=== PATIENT | male | born 1985 | race Caucasian/White ===

== ENCOUNTER 2017-09-21 19:25 | Inpatient (IN) ==
[2017-09-21] MEDS ORDERED: Clindamycin 600 MG/50 ML 600 MG/50 ML IV.SOLN IVPB ONE ×2 (20:04→22:34)
[2017-09-21] MEDS ORDERED: Vancomycin 1,000 MG in D5% in Water 250 ML IVPB ONE (20:04)
[2017-09-21] MEDS ORDERED: 0.9 % Sodium Chloride 1,000 ML IVC SCH (20:15)
--- NOTE | 2017-09-21 20:18 | Emergency Department Note ---
Disposition Clinical Impression: Cellulitis Disposition: Admitted As Inpatient Condition: Fair Time of Disposition: 22:27 (jordana adamson) Skin/Abscess/FB HPI Chief complaint: ED Skin/Abscess/Foreign Body Stated complaint: abscess has extended Time Seen by Provider: 09/21/17 20:02 Source: patient Mode of arrival: ambulatory Limitations: no limitations Nursing Notes Reviewed: Yes Vital Signs Reviewed: Yes HPI Narrative: Seen the other day and [facility] was diagnosed with cellulitis and abscess to the abdomen was put on Chlortrimazole cream Bactrim and Keflex patient states though having no improvement patient states is actually worse it is outside the lines were drawn on his abdomen in the area on his axilla is even getting worse he denies fever chills lightheadedness dizziness denies diarrhea melena hematochezia or hematemesis he denies numbness tingling weakness but states he just does not feel well he denies cough cold or flulike symptoms Patient advises that he is a borderline diabetic and he does not routinely check his sugars Pt Subjective Complaint: abscess/boil Onset (ago): day(s) Tetanus Up to Date: yes Location: chest, Abdomen Severity: moderate Severity scale (1-10): 5 Quality: aching Consistency: constant, Worsening Improves with: none Worsens with: none Context: recent antibiotic Associated symptoms: Denies: fever, chills, rigors, itching, nausea, vomiting, malaise, arthralgias, myalgias, cough, shortness of breath Treatments prior to arrival: antibiotic, other (Other health care provider) Home Medications Medication Instructions Recorded Confirmed Carvedilol [Coreg] 25 mg PO DAILY 09/21/16 09/21/16 Lisinopril-HCTZ 20-12.5 20 mg PO DAILY 09/21/16 09/21/17 Paroxetine HCl [Paxil] 40 mg PO DAILY 09/21/16 09/21/17 Previous Rx's Medication Instructions Recorded Cephalexin [Keflex] 500 mg PO BID 10 Days capsule 09/19/17 Clotrimazole 1% CRM [Lotrimin 1%] 1 appl TP BID 14 Days tube 09/19/17 Sulfamethoxazole/Trimeth DS 1 each PO BID 10 Days tablet 09/19/17 [Bactrim DS] Allergies Allergy/AdvReac Type Severity Reaction Status Date / Time No Known Allergies Allergy Verified 09/21/17 21:19 All systems ED: reviewed and negative except as stated. Review of Systems: As Per HPI Constitutional: Denies: fever, chills, weakness Eyes: Denies: eye pain, eye discharge ENT ED: Denies: ear pain Cardiovascular: Denies: chest pain Respiratory: Denies: cough, dyspnea Gastrointestinal: Reports: abdominal pain. Denies: nausea, vomiting Genitourinary: Denies: urgency, dysuria Musculoskeletal: Denies: back pain, neck pain Integumentary: Reports: rash, lesions Neurological: Denies: headache, weakness Psychiatric: Denies: anxiety, depression Endocrine: Denies: fatigue Hematological/Lymphatic: Denies: easy bleeding Allergic/Immunologic: Denies: facial swelling Past Medical History - Past Medical History Attestation: Yes The following information was validated with the patient. Source: patient, old records reviewed, nursing notes reviewed Medical history: Reports: hypertension, other Psychiatric history: Reports: anxiety, depression, panic disorder - Social History Smoking Status: Never smoker Smokeless Tobacco Status: Yes Alcohol use: Reports: none Drug use: Reports: none Physical Exam - General Limitations: no limitations General appearance: alert, in no apparent distress, obese - Head Head exam: atraumatic, normocephalic, normal inspection - Eye Eye exam: Present: normal appearance, PERRL, EOMI - ENT ENT exam: normal exam, normal oropharynx, mucous membranes moist, normal external ear exam - Neck Neck exam: Present: normal inspection, full ROM, trachea midline - Chest Chest inspection: Present: normal inspection, symmetric chest wall rise, other ( cellulitis in the right axillary area 5x8cm) - Respiratory Respiratory exam: Present: normal lung sounds bilaterally - Cardiovascular Cardiovascular exam: Present: regular rate, normal rhythm, normal heart sounds - Abdominal Exam Abdominal exam: Present: soft, Non-Tender, normal bowel sounds, other ( extensive cellulitis of the lower distal third of the abdominal region extending out side the markings on the abdomen region) - Extremities Exam Extremities exam: Present: normal inspection, full ROM, normal capillary refill. Absent: tenderness, pedal edema, joint swelling, calf tenderness - Expanded Lower Extremity Exam Neurovascular/Tendon exam: Present: normal capillary refill, normal fine/light touch Gait: observed and normal - Back Exam Back exam: Present: normal inspection, full ROM. Absent: muscle spasm - Neurological Exam Neurological exam: Present: alert, oriented X3, CN II-XII intact - Psychiatric Psychiatric exam: Present: normal affect, normal mood - Skin Skin exam: Present: warm, dry, intact, normal color Course Course Narrative: Patient seen and examined labs drawn antibiotic started septic workup was done patient was then admitted with IV anabiotic after CT scan showed no acute abscesses Dr. Munguia in agreement transferred to [facility] Vital Signs Temperature 96 F 09/21/17 19:30 Pulse Rate 85 09/21/17 19:30 Respiratory Rate 18 09/21/17 19:30 Blood Pressure 143/90 09/21/17 19:30 O2 Sat by Pulse Oximetry 96 09/21/17 19:30 Temperature 96 F 09/21/17 19:30 Pulse Rate 102 09/21/17 21:50 Respiratory Rate 16 09/21/17 21:50 Blood Pressure 139/98 09/21/17 21:50 O2 Sat by Pulse Oximetry 95 09/21/17 21:50 Oxygen Delivery Oxygen Delivery Room Air Skin/Abscess/Foreign Body - MDM Narrative Medical decision making narrative: Failed outpatient therapy - Differential Diagnosis Likely: abscess of skin or subcutaneous tissue, cellulitis - Medical Records Medical records reviewed: Yes I reviewed the patient's medical records. - Lab Data Result diagrams: 09/21/17 20:12 09/21/17 20:12 Lab Results 09/21/17 09/21/17 09/21/17 Range/Units 20:12 20:12 20:12 WBC 12.4 H (4.3-11.1) K/mcL RBC 4.94 (4.19-5.50) M/mcL Hgb 14.0 (12.9-16.9) g/dL Hct 40.4 (37.5-50.1) % MCV 81.8 L (83.0-100.0) fL MCH 28.3 (28.0-33.3) pg MCHC 34.7 (31.6-35.5) g/dL RDW 13.1 (11.5-14.5) % Plt Count 311 (140-400) K/mcL MPV 10.1 (9.4-12.4) fL Immature Gran % 0.5 (0-4) % Seg Neutrophils % 69.6 % Lymphocytes % 21.9 % Monocytes % 4.9 % Eosinophils % 2.9 % Basophils % 0.2 % Neutrophils # 8.6 (1.6-8.9) K/mcL Lymphocytes # 2.7 (0.6-4.6) K/mcL Monocytes # 0.6 (0.0-1.3) K/mcL Eosinophils # 0.4 (0.0-0.6) K/mcL Basophils # 0.0 (0.0-0.2) K/mcL APTT 27.0 (26.0-36.0) Seconds Sodium 132 L (136-145) mEq/L Potassium 4.1 (3.5-4.5) mEq/L Chloride 100 (98-109) mEq/L Carbon Dioxide 23 (19-29) mEq/L BUN 8 (8-26) mg/dL Creatinine 0.93 (0.72-1.25) mg/dL Est GFR ( Amer) > 60 (> 60) Est GFR (Non-Af Amer) > 60 (> 60) BUN/Creatinine Ratio 9 (6-26) Glucose 391 H (70-99) mg/dL Calculated Osmolality 289 (280-300) Calcium 9.9 (8.6-10.8) mg/dL Critical Care Time Critical Care Time: No
[2017-09-21 20:27] LABS: Basophils % 0.2 %; Eosinophils # 0.4 K/mcL (0.0-0.6); Eosinophils % 2.9 %; Hematocrit 40.4 % (37.5-50.1); Immature Granulocytes % 0.5 % (0-4); Lymphocytes # 2.7 K/mcL (0.6-4.6); Lymphocytes % 21.9 %; Mean Corpuscular HGB Conc 34.7 g/dL (31.6-35.5); Mean Corpuscular Hemoglobin 28.3 pg (28.0-33.3); Mean Corpuscular Volume 81.8 fL (83.0-100.0); Mean Platelet Volume 10.1 fL (9.4-12.4); Monocytes # 0.6 K/mcL (0.0-1.3); Monocytes % 4.9 %; Neutrophils # 8.6 K/mcL (1.6-8.9); Platelet Count 311 K/mcL (140-400); Red Blood Count 4.94 M/mcL (4.19-5.50); Red Cell Distribution Width 13.1 % (11.5-14.5); Segmented Neutrophils % 69.6 %
[2017-09-21 20:42] LABS: BUN/Creatinine Ratio 9 (6-26); Blood Urea Nitrogen 8 mg/dL (8-26); Calcium 9.9 mg/dL (8.6-10.8); Carbon Dioxide 23 mEq/L (19-29); Chloride 100 mEq/L (98-109); Glucose 391 mg/dL (70-99); Osmolality,Calculated 289 (280-300); Potassium 4.1 mEq/L (3.5-4.5); Sodium 132 mEq/L (136-145); eGFR For African Americans > 60 (> 60); eGFR For Non-African Americans > 60 (> 60)
[2017-09-21] MEDS ORDERED: *HR* HYDROcodone/Acet 5/325 mg TABLET PO PRN (22:34)
[2017-09-21] MEDS ORDERED: D5% in Water 1,000 ML IVC PRN (22:34)
[2017-09-21] MEDS ORDERED: Ondansetron ODT 4 MG TAB.RAPDIS SL PRN (22:34)
[2017-09-21] MEDS ORDERED: *HR* Dextrose 50 % in Water (Syg) 50 ML SYRINGE IVP PRN (22:34)
[2017-09-21] MEDS ORDERED: Dextrose Gel 15 GM PO PRN ×2 (22:34)
[2017-09-21] MEDS ORDERED: Naloxone 0.4 MG/ML INJ IVP PRN (22:34)
[2017-09-21] MEDS ORDERED: Ibuprofen 600 MG TABLET PO PRN (22:34)
[2017-09-21 22:40] LABS: INR 1.1; Prothrombin Time 11.5 Seconds (9.4-12.1)
[2017-09-21] MEDS: 0.9 % Sodium Chloride 1,000 ML IVC SCH (22:57)
[2017-09-22] MEDS ORDERED: Vancomycin (wt based) 1,000 MG VIAL IVPB SCH
[2017-09-22] MEDS: Insulin LISPRO 300 UNITS/3 ML VIAL SQ SCH ×5 (00:35→21:17)
[2017-09-22] MEDS: 0.9 % Sodium Chloride 1,000 ML IVC SCH ×3 (04:47→16:36)
[2017-09-22] MEDS ORDERED: Vancomycin 1,000 MG in D5% in Water 250 ML IVPB ONE (05:00)
[2017-09-22 06:32] LABS: Basophils % 0.4 %; Eosinophils # 0.3 K/mcL (0.0-0.6); Eosinophils % 3.2 %; Hematocrit 37.5 % (37.5-50.1); Hemoglobin 12.6 g/dL (12.9-16.9); Immature Granulocytes % 0.3 % (0-4); Lymphocytes # 2.6 K/mcL (0.6-4.6); Lymphocytes % 27.1 %; Mean Corpuscular HGB Conc 33.6 g/dL (31.6-35.5); Mean Corpuscular Hemoglobin 27.8 pg (28.0-33.3); Mean Corpuscular Volume 82.8 fL (83.0-100.0); Monocytes # 0.5 K/mcL (0.0-1.3); Monocytes % 5.5 %; Platelet Count 234 K/mcL (140-400); Red Blood Count 4.53 M/mcL (4.19-5.50); Red Cell Distribution Width 13.2 % (11.5-14.5); Segmented Neutrophils % 63.5 %
[2017-09-22 06:38] LABS: INR 1.1
[2017-09-22 06:41] LABS: Activated Partial Thrombo Time 25.7 Seconds (26.0-36.0)
[2017-09-22 06:49] LABS: BUN/Creatinine Ratio 9 (6-26); Blood Urea Nitrogen 8 mg/dL (8-26); Calcium 9.2 mg/dL (8.6-10.8); Carbon Dioxide 24 mEq/L (19-29); Chloride 101 mEq/L (98-109); Glucose 305 mg/dL (70-99); Osmolality,Calculated 292 (280-300); Potassium 3.7 mEq/L (3.5-4.5); Sodium 136 mEq/L (136-145); eGFR For African Americans > 60 (> 60); eGFR For Non-African Americans > 60 (> 60)
[2017-09-22] MEDS ORDERED: Lisinopril-HCTZ 20-12.5mg TABLET PO SCH (09:00)
[2017-09-22] MEDS: Clotrimazole 1% CRM 15 GM TUBE TP SCH ×2 (09:31→21:38)
[2017-09-22] MEDS: Vancomycin 1,750 MG in D5% in Water 500 ML IVPB SCH ×2 (12:06→21:37)
[2017-09-22] MEDS: Lisinopril 20 MG TABLET PO SCH (12:28)
[2017-09-22] MEDS: hydroCHLOROthiazide 25 MG TABLET PO SCH (12:28)
--- NOTE | 2017-09-22 15:33 | Internal Med History&Physical ---
Date of Encounter: 09/22/17 Time of Encounter: 15:00 Assessment and Plan (1) Cellulitis Current visit: Yes Status: Acute Continue IV clindamycin and vancomycin. Will add lactobacillus Qualifiers: Site of cellulitis: trunk Site of cellulitis of trunk: abdominal wall Qualified Code(s): L03.311 - Cellulitis of abdominal wall (2) Hypertension Current visit: Yes Status: Chronic Continue lisinopril, HCTZ, and Coreg Qualifiers: Hypertension type: essential hypertension Qualified Code(s): I10 - Essential (primary) hypertension (3) DM type 2 (diabetes mellitus, type 2) Current visit: Yes Status: Chronic We will start metformin and order diabetic education. Continue Accu-Cheks with SSI. Qualifiers: Diabetes mellitus complication status: without complication Diabetes mellitus detention insulin use: without detention use Qualified Code(s): E11.9 - Type 2 diabetes mellitus without complications Internal Medicine - H&P: HPI Chief complaint: Skin infection Admitted From: Home Plans for Post Hospital Care: Home History of present illness: Mr. Troncoso is a 32 year old male who came to the emergency room stating he had worsening infection of the skin of his abdominal wall and lateral chest. He had been to [facility] emergency room September 19 after the infection had been noted the previous day. He was given IV vancomycin and discharged from ER with prescriptions for oral Keflex and Bactrim. Despite using the antibiotics as prescribed the areas of erythema and the pain had worsened. He came to [facility] emergency room last evening and was admitted to [facility] floor for ongoing care needs. He reports he had a "spider bite" on his left forearm several months ago requiring incision and drainage. There are no other household contacts with similar infections. He has had no unusual environmental exposures. Denies any known immune system pathology. Past Med Surg Social Fam HX - Past Medical History Medical history: hypertension, other Psychiatric history: anxiety, depression, panic disorder - Social History Smoking Status: Never smoker Smokeless Tobacco Status: Yes Alcohol use: none Drug use: none Internal Medicine - H&P: Meds Carvedilol [Coreg] 25 mg PO DAILY 09/21/16 [History] Lisinopril-HCTZ 20-12.5 20 mg PO DAILY 09/21/16 [History] Paroxetine HCl [Paxil] 40 mg PO DAILY 09/21/16 [History] Cephalexin [Keflex] 500 mg PO BID 10 Days capsule 09/19/17 [Rx] Clotrimazole 1% CRM [Lotrimin 1%] 1 appl TP BID 14 Days tube 09/19/17 [Rx] Sulfamethoxazole/Trimeth DS [Bactrim DS] 1 each PO BID 10 Days tablet 09/19/17 [Rx] 3 Allergy/AdvReac Type Severity Reaction Status Date / Time No Known Allergies Allergy Verified 09/21/17 21:19 All Systems PM: A 10-system review of systems was performed and is negative for pertinent findings except as documented above in the HPI. Review of systems: Gen.: His weight has decreased approximately 30 pounds in the past year, intentionally Cardiovascular: Has history of hypertension but no known TX heart failure angina DVT or pulmonary embolus Respiratory: He is a lifelong nonsmoker and has no known chronic lung disease GI: He denies disorders of his liver gallbladder or exocrine pancreas : He denies hematuria dysuria or kidney stones Neurologic: He denies large distribution strokes or seizures. Endocrine: He was recently diagnosed with DM 2. He was told in the past he had a thyroid abnormality but does not take medication. TSH was normal at 3.337 on 10/17/2015. Lipid profile 10/17/2015 showed total cholesterol 176, LDL 112, HDL 44, triglycerides 98, and total/HDL ratio 4.0. Hematology/oncology: He denies blood disorders cancers or anemia Psychiatric: He has anxiety and has occasional feelings of depression. He does not take medication. He denies other mental health disorders. Musk skeletal: He denies arthritis gout or other bone joint or muscle disorders. - Constitutional Vitals: Temp Pulse Resp BP Pulse Ox 97.4 F 89 16 123/77 95 09/22/17 14:47 09/22/17 14:47 09/22/17 14:47 09/22/17 14:47 09/22/17 14:47 Exam: Gen.: He is a well-developed overweight male who appears in no acute distress at present time HEENT: Head is atraumatic and normocephalic. Eyes: EOMI. There is no scleral icterus. Mouth: Mucosa is moist. Neck: Supple and nontender. There is no thyromegaly or adenopathy noted. Heart: Regular without murmurs gallops or ectopics Lungs: No wheezes or crackles are heard. Abdomen: Soft and nontender. No masses or guarding are noted. Extremities: There is no cyanosis edema or clubbing noted. Dorsalis pedis and posterior tibial pulses are trace palpable bilaterally. Neurologic: Mental status: He is talkative and a good historian. Cranial nerves : Smile is symmetric. Forehead wrinkles bilaterally. Tongue protrudes midline. EOMI. Motor: There is no pronator drift. Cerebellar: Finger to nose is intact bilaterally. Skin: He has an area of erythema in his right lateral thorax area just below the axilla. It measures approximately 8 cm maximum diameter. Permanent marker lines surrounding the area show decrease in size from previously drawn borders. There are 3 areas of erythema on his lower abdominal wall. Two of the areas show shallow ulcers with the larger one measuring approximately 1 cm maximum diameter. There is subcutaneous induration. The third erythematous lesion does not show any ulceration. Internal Med - H&P Results - Labs CBC & Chem 7: 09/22/17 05:30 09/22/17 05:30 Labs: Short CBC 09/22/17 Range/Units 05:30 WBC 9.4 (4.3-11.1) K/mcL Hgb 12.6 L (12.9-16.9) g/dL Hct 37.5 (37.5-50.1) % Plt Count 234 (140-400) K/mcL Neutrophils # 6.0 (1.6-8.9) K/mcL BMP 09/22/17 05:30 Sodium 136 Potassium 3.7 Chloride 101 Carbon Dioxide 24 BUN 8 Creatinine 0.87 Glucose 305 H Calcium 9.2
[2017-09-22] MEDS: Clindamycin 600 MG/50 ML 600 MG/50 ML IV.SOLN IVPB SCH (16:29)
[2017-09-22] MEDS: *HR* Metformin 500 MG TABLET PO SCH (16:29)
[2017-09-22] MEDS ORDERED: Vancomycin 1,000 MG in D5% in Water 250 ML IVPB SCH (17:00)
[2017-09-22] MEDS ORDERED: Vancomycin 750 MG in D5% in Water 250 ML IVPB SCH (17:00)
[2017-09-22] MEDS: Lactobacillus 1 EACH CAP.SPRINK PO SCH (21:37)
[2017-09-23] MEDS: Clindamycin 600 MG/50 ML 600 MG/50 ML IV.SOLN IVPB SCH ×2 (01:39→09:43)
[2017-09-23] MEDS ORDERED: Aminoglycoside Consult 1 EACH MC ONE ×2 (04:00→11:39)
[2017-09-23] MEDS: Vancomycin 1,750 MG in D5% in Water 500 ML IVPB SCH (05:13)
[2017-09-23 06:06] LABS: Basophils % 0.5 %; Eosinophils # 0.3 K/mcL (0.0-0.6); Eosinophils % 3.6 %; Hematocrit 36.3 % (37.5-50.1); Hemoglobin 12.4 g/dL (12.9-16.9); Immature Granulocytes % 0.5 % (0-4); Lymphocytes % 24.4 %; Mean Corpuscular HGB Conc 34.2 g/dL (31.6-35.5); Mean Corpuscular Hemoglobin 28.4 pg (28.0-33.3); Mean Corpuscular Volume 83.1 fL (83.0-100.0); Mean Platelet Volume 9.9 fL (9.4-12.4); Monocytes # 0.4 K/mcL (0.0-1.3); Monocytes % 4.2 %; Neutrophils # 5.5 K/mcL (1.6-8.9); Platelet Count 216 K/mcL (140-400); Red Blood Count 4.37 M/mcL (4.19-5.50); Red Cell Distribution Width 13.2 % (11.5-14.5); Segmented Neutrophils % 66.8 %
[2017-09-23 06:25] LABS: Alanine Aminotransferase 56 Units/L (0-55); Albumin 2.9 g/dL (3.5-5.0); Albumin/Globulin Ratio 0.8 (1.1-2.2); Alkaline Phosphatase 119 Units/L (38-126); Aspartate Amino Transferase 22 Units/L (5-34); BUN/Creatinine Ratio 14 (6-26); Bilirubin,Total 0.9 mg/dL (0.2-1.2); Blood Urea Nitrogen 11 mg/dL (8-26); Carbon Dioxide 26 mEq/L (19-29); Chloride 99 mEq/L (98-109); Globulin 3.6 g/dL (2.4-3.5); Glucose 282 mg/dL (70-99); Osmolality,Calculated 288 (280-300); Potassium 3.7 mEq/L (3.5-4.5); Sodium 134 mEq/L (136-145); Total Protein 6.5 g/dL (6.0-8.3); eGFR For African Americans > 60 (> 60); eGFR For Non-African Americans > 60 (> 60)
[2017-09-23 07:35] VITALS: BP 156/82
[2017-09-23] MEDS: Insulin LISPRO 300 UNITS/3 ML VIAL SQ SCH (07:44)
[2017-09-23] MEDS: Lactobacillus 1 EACH CAP.SPRINK PO SCH (07:48)
[2017-09-23] MEDS: *HR* Metformin 500 MG TABLET PO SCH (07:48)
[2017-09-23] MEDS: Lisinopril 20 MG TABLET PO SCH (07:49)
[2017-09-23] MEDS: hydroCHLOROthiazide 25 MG TABLET PO SCH (09:33)
[2017-09-23] MEDS: Clotrimazole 1% CRM 15 GM TUBE TP SCH (09:43)
[2017-09-23] MEDS: 0.9 % Sodium Chloride 1,000 ML IVC SCH (09:45)
--- NOTE | 2017-09-23 10:12 | Discharge Summary ---
Date of Encounter: 09/23/17 Time of Encounter: 10:00 - Discharge Diagnosis (1) Cellulitis Priority: Primary Status: Acute Qualifiers: Site of cellulitis: trunk Site of cellulitis of trunk: abdominal wall Qualified Code(s): L03.311 - Cellulitis of abdominal wall (2) Hypertension Priority: Secondary Status: Chronic Qualifiers: Hypertension type: essential hypertension Qualified Code(s): I10 - Essential (primary) hypertension (3) DM type 2 (diabetes mellitus, type 2) Priority: Secondary Status: Chronic Qualifiers: Diabetes mellitus complication status: without complication Diabetes mellitus intermediate frame tender insulin use: without half-way use Qualified Code(s): E11.9 - Type 2 diabetes mellitus without complications - Discharge Medications Prescriptions: Clindamycin [Cleocin] 300 mg PO Q6HR #56 capsule Lactobacillus [Culturelle] 1 each PO BID #14 cap.sprink metFORMIN [Glucophage] 1,000 mg PO BIDWM #120 tablet Home Medications: Carvedilol [Coreg] 25 mg PO DAILY 09/21/16 [History] Lisinopril-HCTZ 20-12.5 20 mg PO DAILY 09/21/16 [History] Paroxetine HCl [Paxil] 40 mg PO DAILY 09/21/16 [History] Clotrimazole 1% CRM [Lotrimin 1%] 1 appl TP BID 14 Days tube 09/19/17 [Rx] Clindamycin [Cleocin] 300 mg PO Q6HR #56 capsule 09/23/17 [Rx] Lactobacillus [Culturelle] 1 each PO BID #14 cap.sprink 09/23/17 [Rx] metFORMIN [Glucophage] 1,000 mg PO BIDWM #120 tablet 09/23/17 [Rx] Allergies/Adverse Reactions: 3 Allergy/AdvReac Type Severity Reaction Status Date / Time No Known Allergies Allergy Verified 09/21/17 21:19 Date of admission: 09/21/17 22:25 Primary care physician: Fuad Guillen Consults: 09/22/17 15:49 Consult to Ham Smoker [CONS] Routine Comment: Reason for Consult: New onset diabetes - Patient Status Disposition: Home, Self-Care Condition: Fair Functional capacity at discharge: independent ambulation Overall status at discharge: patient is progressing back to baseline - Discharge Instructions Follow Up With: Fuad Guillen, PAC [Primary Care Provider] - 1 week - Diet and Activity Activity: resume usual activities as tolerated Diet: diabetic diet Hospital course: Mr. Troncoso is a year old male who came to the emergency room stating he had worsening infection of the skin of his abdominal wall and lateral chest. He had been to [facility] emergency room September 19 after the infection had been noted the previous day. He was given IV vancomycin and discharged from ER with prescriptions for oral Keflex and Bactrim. Despite using the antibiotics as prescribed the areas of erythema and the pain had worsened. He came to [facility] emergency room last evening and was admitted to [facility] for ongoing care needs. Initial orders were written by the emergency room physician. I saw him on September 22 and performed the history and physical. He was started on IV clindamycin and vancomycin with lactobacillus. There was decrease in erythema and he remained afebrile during his hospital stay. He had no pain from his lower abdominal infection sites. There was decreased pain in his right lateral thorax area on the day of discharge. I felt he possibly had developing abscesses and told him to monitor the areas regularly and he should follow with his PCP within 2 days to determine if incision and drainage will be needed. I will give him clindamycin 300 mg every 6 hours for one week. He will also receive lactobacillus. He was started on metformin for DM 2. Hemoglobin A1c returned elevated at 9.0% . Diabetic teaching was ordered. His PCP can monitor further. His blood pressure remained satisfactory on lisinopril, HCTZ, and Coreg. He will be discharged home and follow with his PCP within 2 days. - Time Spent with Patient Total time spent providing and/or coordinating discharge services: - Constitutional Vitals: Temp Pulse Resp BP Pulse Ox 98.4 F 71 18 156/82 98 09/23/17 07:32 09/23/17 07:32 09/23/17 07:32 09/23/17 07:32 09/23/17 07:32
[2017-09-23] MEDS ORDERED: FLUARIX QUAD 2017-18 36MOS UP/PF 0.5 ML SYRINGE IM ONE (11:07)
[2017-09-23 11:55] LABS: % Iron Saturation 24 % (20-55); Iron 53 mcg/dL (65-175); Transferrin 159 mg/dL (174-364)
[2017-09-23 12:28] LABS: Folate 8.2 ng/mL (7.0-31.4)
[2017-09-23 12:31] LABS: Ferritin 1010 ng/ml (22-275)
== END 2017-09-23 11:40 | disposition home or self-care (01) | DRG 603 ==
LOC: EMEROOPIK 19:25 → INPPIK 19:25 → UNDODISOB 09-23 11:40
PROVIDERS: ADMIT Internal Medicine; ATTEND Internal Medicine